=== PATIENT | female | born 1965 | race Caucasian/White ===

== ENCOUNTER 2017-12-03 19:20 | Emergency (ER) | payer MEDICAID ==
[~2017-12-03] VITALS: Ht 154.9 cm; Wt 86.7 kg
[2017-12-03 19:45] VITALS: BP 128/74
--- NOTE | 2017-12-03 19:48 | NUR ---
PT.AMBULATED TO ER BED 2
--- NOTE | 2017-12-03 22:46 | NUR ---
PT. AMBULATED TO ER BED 2
--- NOTE | 2017-12-03 23:13 | NUR ---
PATIENT PRESENTS TO ED WITH VAGINAL PAIN DURING URINATION X4 WEEKS, SCANT BLEEDING X2 DAYS . PT DENIES N/V/D; SKIN IS PINK/WARM/DRY; AAOX4 WITH EVEN AND STEADY GAIT; LUNGS CLEAR BL; HR EVEN AND REGULAR; PT DENIES ANY FEVER, CP, SOB, OR COUGH AT THIS TIME; PATIENT STATES PAIN OF 7/10 AT THIS TIME; VSS; PATIENT POSITIONED FOR COMFORT; HOB ELEVATED; BEDRAILS UP X1; BED DOWN. ER MD MADE AWARE OF PT STATUS.
[2017-12-03 23:51] LABS: APPEARANCE,URINE CLEAR (CLEAR); BILIRUBIN,URINE NEGATIVE (NEGATIVE); BLOOD, URINE TRACE-I (NEGATIVE); COLOR,URINE YELLOW (YELLOW); LEUKOCYTE ESTERASE ,URINE 1+ (NEGATIVE); NITRITE, URINE NEGATIVE (NEGATIVE); UGLUCOSE NEGATIVE (NEGATIVE)
[2017-12-04 00:09] LABS: RBC,URINE 0-5 (RARE) /HPF (0-5)
[2017-12-04 00:21] VITALS: BP 128/74
== END 2017-12-04 00:22 | disposition home or self-care (01) ==
LOC: MED 19:20
DX: N39.0 Urinary tract infection, site not specified (principal); R03.0 Elevated blood-pressure reading, without diagnosis of hypertension
CPT/HCPCS: 81001; 81025; 87086; 99284

== ENCOUNTER 2018-03-08 08:46 | Emergency (ER) | payer MEDICAID ==
[~2018-03-08] VITALS: Ht 162.6 cm; Wt 88.9 kg
[2018-03-08 08:51] VITALS: BP 123/74
--- NOTE | 2018-03-08 08:55 | NUR ---
PATIENT AMBULATED TO BED 4.
--- NOTE | 2018-03-08 09:00 | NUR ---
53YO F TO ER W/C/O LBP X3 THAT RADIATES TO BILAT LEGS. PT STATES TINGLING IN BILAT TOES. PT DENIES ANY TRAUMA OR RECENT INJURY. LS CLEAR THROUGHOUT, RR EVEN AND UNLABORED, BS ACTIVE X4, ABD SOFT ROUND AND NON TENDER. PAIN OF 8/10. NO OTHER MEDICAL C/O, WILL CONTINUE TO MONITOR, ER MD MADE AWARE.
--- NOTE | 2018-03-08 09:10 | NUR ---
Patient being evaluated by physician at bedside.
[2018-03-08] MEDS ORDERED: IBUPROFEN 600 MG TAB PO ONE (09:25)
[2018-03-08 09:44] VITALS: BP 120/76
--- NOTE | 2018-03-08 09:44 | NUR ---
Patient discharged with v/s stable. Written and verbal after care instructions given and explained. Patient alert, oriented and verbalized understanding of instructions. Ambulatory with steady gait. All questions addressed prior to discharge. ID band removed. Patient advised to follow up with PMD. Rx of norco 5mg/325mg, ibuprofen 600mg, flexeril 10 mg given. Patient educated on indication of medication including possible reaction and side effects. Opportunity to ask questions provided and answered.
== END 2018-03-08 09:44 | disposition home or self-care (01) ==
LOC: MED 08:46
DX: S39.012A Strain of muscle, fascia and tendon of lower back, initial encounter (principal); M54.40 Lumbago with sciatica, unspecified side; X58.XXXA Exposure to other specified factors, initial encounter; Y93.89 Activity, other specified; Y92.89 Other specified places as the place of occurrence of the external cause; Y99.8 Other external cause status
CPT/HCPCS: 99283